=== PATIENT | female | born 1980 | race Caucasian/White ===

== ENCOUNTER 2018-01-29 23:53 | Emergency (ER) | payer BC, OTHER ==
[2018-01-29 23:58] VITALS: BP 144/84
[2018-01-30 00:36] LABS: Urine Appearance Clear; Urine Blood 2+ (Negative); Urine Color Yellow; Urine Ketones Negative (Negative); Urine Protein Negative (Negative); Urine Specific Gravity 1.015 (1.010-1.030); Urine Urobilinogen Negative (Negative)
--- NOTE | 2018-01-30 00:44 | ED ---
HPI Febrile Illness - HPI Summary HPI Summary: C/O FEVER UP TO 102, LOW BACK PAIN, NAUSEA, CHILLS, DIZZINESS STARTING TODAY AT 15OO. HX OF BILAT EGG REMOVAL 5 DAYS AGO. PT CONCERNED ABOUT INFECTION FOR EGG "SURGERY". STATES POST OPERATIVE PAIN STEADILY IMPROVING SINCE. DENIES COUGH, SORE THROAT, CP, SOB, V/D, NEW ABDO PAIN, URINARY SX, VAGINAL SX, CHNAGE IN BM. MED HX = HIV, [facility] CD4 COUNT 900 LAST . NO OTHER SURGICAL HX. - History of Current Complaint Chief Complaint: EDNauseaVomitDiarrh Time Seen by Provider: 01/30/18 00:08 Hx Obtained From: Patient Hx Last Menstrual Period: January 03 Onset/Duration: Started Hours Ago Timing: Intermittent Initial Severity: Mild Current Severity: Moderate Pain Intensity: 6 Pain Scale Used: 0-10 Numeric Alleviating Factors: Nothing Associated Signs and Symptoms: Chills, Dizziness, Nausea, Recent Surgery - Risk Factors Pseudomonas Risk Factors: Negative Serious Bacterial Infection Risk Factors: HIV - Allergy/Home Medications Allergies/Adverse Reactions: Allergies Allergy/AdvReac Type Severity Reaction Status Date / Time environmental Allergy Sneezing Uncoded 01/29/18 23:58 PMH/Surg Hx/FS Hx/Imm Hx Cardiovascular History: Denies: Hx Pacemaker/ICD Sensory History: Denies: Hx Hearing Aid Psychiatric History: Denies: Hx Panic Disorder Infectious Disease History: No Infectious Disease History: Reports: Hx Human Immunodeficiency Virus (HIV) Denies: Traveled Outside the [place] in Last 30 Days - Social History Alcohol Use: Occasionally Substance Use Type: Reports: None Smoking Status (MU): Never Smoked Tobacco Review of Systems Positive: Fever, Chills Eyes: Negative Cardiovascular: Negative Respiratory: Negative Gastrointestinal: Negative Genitourinary: Negative Musculoskeletal: Negative Skin: Negative Neurological: Negative Psychological: Normal All Other Systems Reviewed And Are Negative: Yes Physical Exam Triage Information Reviewed: Yes Vital Signs On Initial Exam: Initial Vitals Temp Pulse Resp BP Pulse Ox 100.9 F 111 16 144/84 96 01/29/18 23:55 01/29/18 23:55 01/29/18 23:55 01/29/18 23:55 01/29/18 23:55 Vital Signs Reviewed: Yes Appearance: Positive: Well-Appearing Skin: Positive: Warm Head/Face: Positive: Normal Head/Face Inspection Eyes: Positive: Normal Neck: Positive: Supple Respiratory/Lung Sounds: Positive: Clear to Auscultation Cardiovascular: Positive: Normal Abdomen Description: Positive: Other: - MILD TTP AT UMBILICUS, SUPRAPUBIC Musculoskeletal: Positive: Normal Psychiatric: Positive: Normal - Antoinette Coma Scale Best Eye Response: 4 - Spontaneous Best Motor Response: 6 - Obeys Commands Best Verbal Response: 5 - Oriented Coma Scale Total: 15 Diagnostics - Vital Signs Vital Signs Temp Pulse Resp BP Pulse Ox 01/29/18 23:55 100.9 F 111 16 144/84 96 - Laboratory Result Diagrams: 01/30/18 00:30 01/30/18 00:30 Lab Statement: Any lab studies that have been ordered have been reviewed, and results considered in the medical decision making process. Course/Dx - Diagnoses Provider Diagnoses: Febrile illness Discharge - Sign-Out/Discharge Documenting (check all that apply): Discharge - Discharge Plan Condition: Stable Disposition: HOME Prescriptions: Ondansetron ODT TAB* [Zofran 4 MG Odt TAB*] 4 mg PO Q8H PRN 4 Days #14 tab.odt PRN Reason: Nausea Referrals: Florentino Singh MD [Primary Care Provider] - Additional Instructions: TAKE TYLENOL FOR CONTROL OF FEVER. RETURN TO ED FOR ANY NEW OR WORSENING SYMPTOMS. - Billing Disposition and Condition Condition: STABLE Disposition: HOME
[2018-01-30 00:46] LABS: ABS Basophils 0 10^3/ul (0-0.2); ABS Eosinophils 0 10^3/ul (0-0.6); ABS Lymphocytes 0.8 10^3/ul (1.0-4.8); ABS Monocytes 0.5 10^3/ul (0-0.8); ABS Neutrophils 6.5 10^3/ul (1.5-7.7); ABS Nucleated RBC 0 10^3/ul; Eosinophil % 0.5 % (0-6); Hematocrit 38 % (35-47); Hemoglobin 13.3 g/dl (12.0-16.0); Lymphocyte % 10.4 % (25-47); Mean Corpuscular HGB Conc 35 g/dl (31-36); Mean Corpuscular Hemoglobin 33 pg (27-31); Mean Corpuscular Volume 93 fL (80-97); Mean Platelet Volume 6.9 um3 (7.4-10.4); Nucleated Red Blood Cells % 0; Platelet Count 248 10^3/ul (150-450); Red Blood Count 4.07 10^6/ul (4.0-5.4); Red Cell Distribution Width 13 % (10.5-15); White Blood Count 7.8 10^3/ul (3.5-10.8)
[2018-01-30 01:03] LABS: EGFR Non-African American 84.4 (>60)
[2018-01-30] MEDS ORDERED: Acetaminophen TAB* 325 MG PO ONE (01:38)
[2018-01-30] MEDS ORDERED: Ondansetron ODT TAB* 4 MG PO ONE (01:38)
== END 2018-01-30 02:13 | disposition home or self-care (01) ==
LOC: ED 23:53
DX: R50.9 Fever, unspecified (principal); M54.9 Dorsalgia, unspecified; R42 Dizziness and giddiness
CPT/HCPCS: 36415; 80053; 81003; 81015; 83605; 85025; 87086; 99282; A9270-GY

== ENCOUNTER 2019-08-18 17:24 | Emergency (ER) | payer BC ==
--- NOTE | 2019-08-18 19:53 | ED ---
GI/ HPI - HPI Summary HPI Summary: Patient is a 38 y/o F who is around 6-7 weeks presenting to [facility] with complaints of sharp right pelvic pain and vaginal bleeding. She states that yesterday evening, 08/17/19 around 2300 she had rolled over in her bed onto her right side and had onset of right pelvic pain. She was able to fall asleep and notes absence of pain in the morning. Around 1400/1500 today, 08/18/19, she had onset of vaginal bleeding and the return of her right sided pelvic pain. Pain is reported to be similar but less severe compared to her initial pain. Patient had called [facility] care and was advised to come to ED for US. The patient is on IVF and takes crione. She notes that she has an appointment with her IVF doctor 08/24/19. Patient had attempted to contact her IVF doctor's office today but was unable to make contact. At present, pain is rated 5-6/10. She states that the amount of blood she produced was similar to that she produces during the first day of her menstrual cycles. She is A1. Patient's last was November 2018. She states that she had miscarried around 8 weeks. Home medications and allergies are reviewed. is present in the room. - History of Current Complaint Chief Complaint: EDOBProblems Stated Complaint: 7 WEEKS ,OVARY PAIN PER PT Hx Obtained From: Patient Hx Last Menstrual Period: January 03 Onset/Duration: Started Hours Ago, Still Present Timing: Intermittent, Lasting Hours Severity: Moderate Current Severity: Moderate Pain Intensity: 7 Location of Pain: Other - right pelvic area Pain Characteristics: Sharp Associated Signs and Symptoms: Negative: Fever - on vitals, temp is 97.9 F Additional Signs & Symptoms: Positive: Vaginal Bleeding - Allergy/Home Medications Allergies/Adverse Reactions: Allergies Allergy/AdvReac Type Severity Reaction Status Date / Time environmental Allergy Sneezing Uncoded 08/18/19 17:26 Home Medications: Home Medications Abacavir/Dolutegravir/Lamivudi [Triumeq 600-50-300 mg Tablet] 1 tab PO DAILY 04/29 [History Confirmed 08/18/19] Escitalopram * [Lexapro *] 20 mg PO DAILY 08/18/19 [History Confirmed 08/18/19] Estradiol TAB(NF) 2 mg PO BID 08/18/19 [History Confirmed 08/18/19] PMH/Surg Hx/FS Hx/Imm Hx Cardiovascular History: Denies: Hx Pacemaker/ICD Sensory History: Denies: Hx Hearing Aid Psychiatric History: Denies: Hx Panic Disorder Infectious Disease History: No Infectious Disease History: Reports: Hx Human Immunodeficiency Virus (HIV) Denies: Traveled Outside the [place] in Last 30 Days - Family History Known Family History: Negative: Cardiac Disease, Hypertension, Diabetes - Social History Alcohol Use: Occasionally Substance Use Type: Reports: None Smoking Status (MU): Never Smoked Tobacco Review of Systems Negative: Fever - on vitals, temp is 97.9 F Genitourinary: Other - positive - vaginal bleeding Positive: pain - right pelvic All Other Systems Reviewed And Are Negative: Yes Physical Exam - Summary Physical Exam Summary: Appearance: Well-appearing, Well-nourished, lying in bed comfortably Skin: Warm, dry, no obvious rash Eyes: sclera anicteric, no conjunctival pallor ENT: mucous membranes moist, pharynx appears normal Neck: Supple, nontender Respiratory: Clear to auscultation, no signs of respiratory distress Cardiovascular: Normal S1, S2. No murmurs. Normal distal pulses in tibial and radial bilaterally. Abdomen/Pelvis: Mild right pelvic tenderness, no guarding, no rebound, no other tenderness. Soft, normal active bowel sounds present Musculoskeletal: Normal, Strength/ROM Intact Neurological: A&Ox3, awake and alert, mentation is normal, speech is fluent and appropriate Psychiatric: affect is normal, does not appear anxious or depressed Triage Information Reviewed: Yes Vital Signs On Initial Exam: Initial Vitals Temp Pulse Resp BP Pulse Ox 97.9 F 101 18 145/91 100 08/18/19 17:26 08/18/19 17:26 08/18/19 17:26 08/18/19 17:26 08/18/19 17:26 Vital Signs Reviewed: Yes Procedures - Sedation Patient Received Moderate/Deep Sedation with Procedure: No Diagnostics - Vital Signs Vital Signs Temp Pulse Resp BP Pulse Ox 08/18/19 17:26 97.9 F 101 18 145/91 100 - Laboratory Lab Statement: Any lab studies that have been ordered have been reviewed, and results considered in the medical decision making process. - Ultrasound TRANSVAGINAL US Ultrasound Interpretation Completed By: Radiologist Summary of Ultrasound Findings: IMPRESSION: Viable twin intrauterine as above. No acute findings. THIS REPORT WAS REVIEWED BY DR. RAMOS. Re-Evaluation - Re-Evaluation First Eval Re-Evaluation Time: 19:53 Comment: US was discussed with the patient. She was discharged to home and advised to follow up with her IVF provider. Patient is agreeable with this plan. GIGU Course/Dx - Course Course Of Treatment: Patient is a 38 y/o F who is around 6-7 weeks presenting to [facility] with complaints of sharp right pelvic pain and vaginal bleeding. The patient is on IVF and takes crione. At present, pain is rated 5-6/ 10. She states that the amount of blood she produced was similar to that she produces during the first day of her menstrual cycles. She is A1. Patient's last was November 2018. She states that she had miscarried around 8 weeks. TRANSVAGINAL US IMPRESSION: Viable twin intrauterine as above. No acute findings. US was discussed with the patient. She was discharged to home and advised to follow up with her IVF provider. Patient is agreeable with this plan. - Diagnoses Provider Diagnoses: First trimester bleeding Discharge ED - Sign-Out/Discharge Documenting (check all that apply): Patient Departure - discharge - Discharge Plan Condition: Stable Disposition: HOME Patient Education Materials: Threatened Miscarriage (ED) Referrals: Florentino Singh MD [Primary Care Provider] - Additional Instructions: The US showed viable twin , with good heart activity. At this point things look good, but contact your IVF provider tomorrow so they can get the records and let you know how to proceed. - Billing Disposition and Condition Condition: STABLE Disposition: Home - Attestation Statements Document Initiated by Kwame: Yes Documenting Scribe: AGGIE RAINEY Provider For Whom Kwame is Documenting (Include Credential): MARILU RAMOS MD Scribshade Attestation: AGGIE Valencia, nayeibed for MARILU RAMOS MD on 08/19/19 at 0553. Scribe Documentation Reviewed: Yes Provider Attestation: The documentation as recorded by the AGGIE de la fuente accurately reflects the service I personally performed and the decisions made by me, MARILU RAMOS MD Status of Scribe Document: Viewed
[2019-08-18 20:13] VITALS: BP 158/81
== END 2019-08-18 20:13 | disposition home or self-care (01) ==
LOC: ED 17:24
DX: O20.9 Hemorrhage in early pregnancy, unspecified (principal); Z3A.01 Less than 8 weeks gestation of pregnancy; Z79.899 Other long term (current) drug therapy
CPT/HCPCS: 76817; 99282